=== PATIENT | male | born 1965 | race Two or more races ===

== ENCOUNTER 2017-05-25 16:10 | Emergency (ER) | payer OTHER ==
[~2017-05-25] VITALS: Ht 167.6 cm; Wt 105.2 kg
[~2017-05-25 16:10] MED LIST: AMOX500 PO; AZIT250 PO; Bactrim Ds Tab1 EACH PO; CEPH250A PO; Crutch1 EACH MISC; GUAI600T33 PO; METF500 PO; PRAV20 PO; Percocet 5-3251 EACH PO; Peri-Colace Ta1 EACH PO
[2017-05-25] MEDS ORDERED: STATIN DRUG (16:28)
[2017-05-25] MEDS ORDERED: METF500 PO (16:28)
== END 2017-05-25 16:51 | disposition home or self-care (01) ==
LOC: ER 16:10
DX: S61.012A Laceration without foreign body of left thumb without damage to nail, initial encounter (principal); E11.9 Type 2 diabetes mellitus without complications; W26.9XXA Contact with unspecified sharp object(s), initial encounter; Y99.0 Civilian activity done for income or pay
CPT/HCPCS: 12001; 99283

== ENCOUNTER 2018-02-21 01:52 | Emergency (ER) | payer OTHER ==
[~2018-02-21] VITALS: Ht 172.7 cm; Wt 104.3 kg
[~2018-02-21 01:52] MED LIST changes: +STATIN DRUG
[2018-02-21 02:21] LABS: BASOPHILS ABSOLUTE AUTO 0.06 K/mm3 (0.00-0.23); BASOPHILS PERCENT AUTO 1 % (0-2); EOSINOPHILS ABSOLUTE AUTO 0.33 K/mm3 (0.00-0.68); EOSINOPHILS PERCENT AUTO 5 % (0-6); Hematocrit 47.6 % (37.0-53.0); IMMATURE GRAN ABSOLUTE AUTO 0.03 K/mm3 (0.00-0.10); IMMATURE GRAN PERCENT AUTO 1 % (0-1); LYMPHOCYTES ABSOLUTE AUTO 2.42 K/mm3 (0.84-5.20); LYMPHOCYTES PERCENT AUTO 36 % (21-46); MONOCYTES ABSOLUTE AUTO 0.51 K/mm3 (0.16-1.47); MONOCYTES PERCENT AUTO 8 % (4-13); Mean Corpuscular HGB 31.3 pg (26.0-34.0); Mean Corpuscular HGB Conc 33.6 g/dL (31.5-36.5); Mean Corpuscular Volume 93 fL (80-100); Mean Platelet Volume 10.5 fL (9.1-12.4); NEUTROPHILS PERCENT AUTO 50 % (41-73); Platelet Count 347 K/mm3 (150-400); RDW Coefficient Variation 12.8 % (11.7-14.2); RDW Standard Deviation 43.4 fL (35.1-46.3); Red Blood Cell Count 5.12 M/mm3 (4.30-5.90); White Blood Cell Count 6.65 K/mm3 (4.00-11.30)
[2018-02-21 02:31] LABS: Alanine Aminotransfer (ALT/SGP 78 U/L (12-78); Albumin, Blood 3.8 g/dL (3.4-5.0); Albumin/Globulin Ratio 0.9 (0.8-1.8); Alk Phos 81 U/L (50-136); Anion Gap 9 mmol/L (6-16); Aspartate Aminotrans (AST/SGOT 33 U/L (12-37); Bilirubin, Total 0.6 mg/dL (0.1-1.0); Blood Urea Nitrogen 12 mg/dL (8-24); Bun/Creatinine Ratio 15.8 (12.0-20.0); CO2, Blood 25 mmol/L (21-32); Calcium, Blood 8.8 mg/dL (8.5-10.1); Chloride, Blood 107 mmol/L (98-108); Creatinine, Blood 0.76 mg/dL (0.60-1.20); Globulin, Blood 4.1 g/dL (2.2-4.0); Glomerular Filtration Rate >60 (60-); Glucose, Blood 125 mg/dL (70-99); Potassium, Blood 4.1 mmol/L (3.5-5.5); Sodium, Blood 141 mmol/L (136-145); Total Protein, Blood 7.9 g/dL (6.4-8.2); Troponin I <0.015 ng/mL (0.000-0.040)
== END 2018-02-21 03:20 | disposition home or self-care (01) ==
LOC: ER 01:52
PROVIDERS: Emergency Medicine
DX: R06.02 Shortness of breath (principal); E11.9 Type 2 diabetes mellitus without complications
CPT/HCPCS: 36415; 71046; 80053; 84484; 85025; 93005; 93010; 99284-25

== ENCOUNTER 2019-06-15 16:06 | Emergency (ER) | payer OTHER ==
[~2019-06-15] VITALS: Ht 167.6 cm; Wt 97.5 kg
[2019-06-15 16:33] LABS: BASOPHILS ABSOLUTE AUTO 0.05 K/mm3 (0.00-0.23); BASOPHILS PERCENT AUTO 1 % (0-2); EOSINOPHILS ABSOLUTE AUTO 0.29 K/mm3 (0.00-0.68); EOSINOPHILS PERCENT AUTO 5 % (0-6); Hematocrit 48.9 % (37.0-53.0); Hemoglobin 16.3 g/dL (13.5-17.5); IMMATURE GRAN ABSOLUTE AUTO 0.01 K/mm3 (0.00-0.10); IMMATURE GRAN PERCENT AUTO 0 % (0-1); LYMPHOCYTES ABSOLUTE AUTO 2.02 K/mm3 (0.84-5.20); LYMPHOCYTES PERCENT AUTO 34 % (21-46); MONOCYTES ABSOLUTE AUTO 0.48 K/mm3 (0.16-1.47); MONOCYTES PERCENT AUTO 8 % (4-13); Mean Corpuscular HGB 31.4 pg (26.0-34.0); Mean Corpuscular HGB Conc 33.3 g/dL (31.5-36.5); Mean Corpuscular Volume 94 fL (80-100); Mean Platelet Volume 10.5 fL (9.1-12.4); NEUTROPHILS ABSOLUTE AUTO 3.05 K/mm3 (1.96-9.15); NEUTROPHILS PERCENT AUTO 52 % (41-73); Platelet Count 282 K/mm3 (150-400); RDW Coefficient Variation 12.9 % (11.7-14.2); RDW Standard Deviation 44.3 fL (35.1-46.3); Red Blood Cell Count 5.19 M/mm3 (4.30-5.90)
[2019-06-15 16:57] LABS: Alanine Aminotransfer (ALT/SGP 74 U/L (12-78); Albumin, Blood 4.1 g/dL (3.4-5.0); Albumin/Globulin Ratio 1.1 (0.8-1.8); Alk Phos 77 U/L (50-136); Anion Gap 5 mmol/L (6-16); Aspartate Aminotrans (AST/SGOT 35 U/L (12-37); Bilirubin, Total 0.9 mg/dL (0.1-1.0); Blood Urea Nitrogen 17 mg/dL (8-24); Bun/Creatinine Ratio 23.1 (12.0-20.0); CO2, Blood 24 mmol/L (21-32); Chloride, Blood 109 mmol/L (98-108); Creatinine, Blood 0.74 mg/dL (0.60-1.20); Globulin, Blood 3.9 g/dL (2.2-4.0); Glomerular Filtration Rate >60 (60-); Glucose, Blood 119 mg/dL (70-99); Potassium, Blood 3.7 mmol/L (3.5-5.5); Sodium, Blood 138 mmol/L (136-145); Troponin I <0.015 ng/mL (0.000-0.040)
[2019-06-15] MEDS ORDERED: Zithromax250 MG PO (18:43)
== END 2019-06-15 20:50 | disposition home or self-care (01) ==
LOC: ER 16:06
PROVIDERS: Physician Assistant
DX: J18.9 Pneumonia, unspecified organism (principal); E11.9 Type 2 diabetes mellitus without complications; I25.2 Old myocardial infarction
CPT/HCPCS: 36415; 71046; 80053; 84484; 85025; 93005; 93010; 99284-25

== ENCOUNTER → 2019-09-11 | Outpatient (CLI) | payer OTHER ==
[~2019-09-11] MED LIST changes: +Zithromax250 MG PO
[2019-09-11 17:32] LABS: BASOPHILS ABSOLUTE AUTO 0.05 K/mm3 (0.00-0.23); BASOPHILS PERCENT AUTO 1 % (0-2); EOSINOPHILS ABSOLUTE AUTO 0.25 K/mm3 (0.00-0.68); EOSINOPHILS PERCENT AUTO 5 % (0-6); Hematocrit 49.1 % (37.0-53.0); Hemoglobin 16.5 g/dL (13.5-17.5); IMMATURE GRAN ABSOLUTE AUTO 0.01 K/mm3 (0.00-0.10); IMMATURE GRAN PERCENT AUTO 0 % (0-1); LYMPHOCYTES ABSOLUTE AUTO 2.25 K/mm3 (0.84-5.20); LYMPHOCYTES PERCENT AUTO 48 % (21-46); MONOCYTES ABSOLUTE AUTO 0.36 K/mm3 (0.16-1.47); MONOCYTES PERCENT AUTO 8 % (4-13); Mean Corpuscular HGB 31.5 pg (26.0-34.0); Mean Corpuscular HGB Conc 33.6 g/dL (31.5-36.5); Mean Corpuscular Volume 94 fL (80-100); Mean Platelet Volume 11.7 fL (9.1-12.4); NEUTROPHILS ABSOLUTE AUTO 1.74 K/mm3 (1.96-9.15); NEUTROPHILS PERCENT AUTO 37 % (41-73); Platelet Count 271 K/mm3 (150-400); RDW Standard Deviation 44.8 fL (35.1-46.3); Red Blood Cell Count 5.24 M/mm3 (4.30-5.90); White Blood Cell Count 4.66 K/mm3 (4.00-11.30)
[2019-09-11 17:33] LABS: Alanine Aminotransfer (ALT/SGP 41 U/L (12-78); Albumin/Globulin Ratio 1.1 (0.8-1.8); Alk Phos 81 U/L (50-136); Anion Gap 7 mmol/L (6-16); Aspartate Aminotrans (AST/SGOT 22 U/L (12-37); Bilirubin, Total 1.1 mg/dL (0.1-1.0); Blood Urea Nitrogen 16 mg/dL (8-24); Bun/Creatinine Ratio 22.4 (12.0-20.0); CHOL/HDL RATIO 5.3; CO2, Blood 23 mmol/L (21-32); Chloride, Blood 108 mmol/L (98-108); Cholesterol 266 mg/dL (50-200); Creatinine, Blood 0.71 mg/dL (0.60-1.20); Globulin, Blood 3.8 g/dL (2.2-4.0); Glomerular Filtration Rate >60 (60-); Glucose, Blood 138 mg/dL (70-99); HDL Cholesterol 50 mg/dL (>39); LDL/HDL RATIO 3.6; Low Density Lipoprotein Chol 181 mg/dL (0-110); Sodium, Blood 138 mmol/L (136-145); Total Protein, Blood 7.8 g/dL (6.4-8.2); Triglycerides 174 mg/dL (30-160); Very Low Density Lipoprot Chol 34 mg/dL (6-32)
== END | disposition home or self-care (01) ==
LOC: LAB SHORT 11:45 → LAB 11:45 → LAB FUT 08-13 11:10 → EDSTATUS 08-13 11:10
PROVIDERS: Nurse Practitioner
DX: E78.5 Hyperlipidemia, unspecified (principal); E55.9 Vitamin D deficiency, unspecified; I10 Essential (primary) hypertension
CPT/HCPCS: 80053; 80061; 82306; 85025

== ENCOUNTER → 2020-07-06 | Outpatient (CLI) | payer OTHER | END | disposition home or self-care (01) | LOC: LAB 16:51 → LAB SHORT 16:51 | DX: M25.569 Pain in unspecified knee (principal) | CPT/HCPCS: 84560 ==

== ENCOUNTER 2020-12-11 19:36 | Emergency (ER) | payer OTHER ==
[~2020-12-11] VITALS: Ht 165.1 cm; Wt 106.6 kg
[2020-12-11 22:06] LABS: BASOPHILS ABSOLUTE AUTO 0.01 K/mm3 (0.00-0.23); BASOPHILS PERCENT AUTO 0 % (0-2); EOSINOPHILS PERCENT AUTO 0 % (0-6); Hematocrit 41.5 % (37.0-53.0); Hemoglobin 14.1 g/dL (13.5-17.5); IMMATURE GRAN ABSOLUTE AUTO 0.02 K/mm3 (0.00-0.10); IMMATURE GRAN PERCENT AUTO 0 % (0-1); LYMPHOCYTES ABSOLUTE AUTO 0.85 K/mm3 (0.84-5.20); LYMPHOCYTES PERCENT AUTO 11 % (21-46); MONOCYTES ABSOLUTE AUTO 0.22 K/mm3 (0.16-1.47); MONOCYTES PERCENT AUTO 3 % (4-13); Mean Corpuscular HGB 31.1 pg (26.0-34.0); Mean Corpuscular Volume 91 fL (80-100); Mean Platelet Volume 10.6 fL (9.1-12.4); NEUTROPHILS ABSOLUTE AUTO 6.49 K/mm3 (1.96-9.15); NEUTROPHILS PERCENT AUTO 86 % (41-73); Platelet Count 197 K/mm3 (150-400); RDW Coefficient Variation 13.2 % (11.7-14.2); RDW Standard Deviation 44.5 fL (35.1-46.3); Red Blood Cell Count 4.54 M/mm3 (4.30-5.90); White Blood Cell Count 7.59 K/mm3 (4.00-11.30)
[2020-12-11 22:20] LABS: Alanine Aminotransfer (ALT/SGP 80 U/L (12-78); Albumin, Blood 2.8 g/dL (3.4-5.0); Albumin/Globulin Ratio 0.8 (0.8-1.8); Alk Phos 70 U/L (50-136); Anion Gap 6 mmol/L (6-16); Aspartate Aminotrans (AST/SGOT 59 U/L (12-37); Bilirubin, Total 0.7 mg/dL (0.1-1.0); Blood Urea Nitrogen 8 mg/dL (8-24); Bun/Creatinine Ratio 10.4 (12.0-20.0); CO2, Blood 23 mmol/L (21-32); Calcium, Blood 7.8 mg/dL (8.5-10.1); Chloride, Blood 108 mmol/L (98-108); Creatinine, Blood 0.77 mg/dL (0.60-1.20); Globulin, Blood 3.6 g/dL (2.2-4.0); Glomerular Filtration Rate >60 (60-); Glucose, Blood 208 mg/dL (70-99); Sodium, Blood 137 mmol/L (136-145); Total Protein, Blood 6.4 g/dL (6.4-8.2); Troponin I <0.015 ng/mL (0.000-0.040)
[2020-12-11] MEDS ORDERED: DECADRON6 M1 PO (22:57)
== END 2020-12-12 01:19 | disposition home or self-care (01) ==
LOC: ER 19:36
PROVIDERS: Emergency Medicine
DX: U07.1 COVID-19 (principal); R09.02 Hypoxemia; E11.9 Type 2 diabetes mellitus without complications; I10 Essential (primary) hypertension; Z79.84 Long term (current) use of oral hypoglycemic drugs
CPT/HCPCS: 80053; 83880; 84484; 85025; 93005; 93010; 96374; 99285-25; J1100; J7120

== ENCOUNTER 2020-12-14 03:46 | Inpatient (IN) | payer OTHER ==
[~2020-12-14] VITALS: Ht 167.6 cm; Wt 100.2 kg
[~2020-12-14 03:46] MED LIST changes: +DECADRON6 M1 PO
[2020-12-14 04:18] LABS: BASOPHILS ABSOLUTE AUTO 0.01 K/mm3 (0.00-0.23); BASOPHILS PERCENT AUTO 0 % (0-2); EOSINOPHILS PERCENT AUTO 0 % (0-6); Hematocrit 43.4 % (37.0-53.0); Hemoglobin 14.8 g/dL (13.5-17.5); Mean Corpuscular HGB 30.6 pg (26.0-34.0); Mean Corpuscular HGB Conc 34.1 g/dL (31.5-36.5); Mean Corpuscular Volume 90 fL (80-100); Mean Platelet Volume 10.3 fL (9.1-12.4); Platelet Count 279 K/mm3 (150-400); RDW Coefficient Variation 13.3 % (11.7-14.2); RDW Standard Deviation 43.6 fL (35.1-46.3); Red Blood Cell Count 4.83 M/mm3 (4.30-5.90); White Blood Cell Count 11.03 K/mm3 (4.00-11.30)
[2020-12-14 04:33] LABS: IMMATURE GRAN ABSOLUTE AUTO 0.07 K/mm3 (0.00-0.10); IMMATURE GRAN PERCENT AUTO 1 % (0-1); LYMPHOCYTES PERCENT AUTO 10 % (21-46); MONOCYTES ABSOLUTE AUTO 0.29 K/mm3 (0.16-1.47); MONOCYTES PERCENT AUTO 3 % (4-13); NEUTROPHILS ABSOLUTE AUTO 9.56 K/mm3 (1.96-9.15); NEUTROPHILS PERCENT AUTO 87 % (41-73)
[2020-12-14 04:37] LABS: Alanine Aminotransfer (ALT/SGP 78 U/L (12-78); Albumin, Blood 2.8 g/dL (3.4-5.0); Albumin/Globulin Ratio 0.6 (0.8-1.8); Alk Phos 83 U/L (50-136); Anion Gap 9 mmol/L (6-16); Aspartate Aminotrans (AST/SGOT 48 U/L (12-37); Bilirubin, Total 0.7 mg/dL (0.1-1.0); Blood Urea Nitrogen 21 mg/dL (8-24); Bun/Creatinine Ratio 28.9 (12.0-20.0); CO2, Blood 23 mmol/L (21-32); Calcium, Blood 8.7 mg/dL (8.5-10.1); Chloride, Blood 108 mmol/L (98-108); Creatinine, Blood 0.73 mg/dL (0.60-1.20); Ferritin, Serum 1165 ng/mL (26-388); Globulin, Blood 4.4 g/dL (2.2-4.0); Glomerular Filtration Rate >60 (60-); Glucose, Blood 237 mg/dL (70-99); Lactate Dehydrogenase (Ld),Bld 760 U/L (100-240); Potassium, Blood 3.8 mmol/L (3.5-5.5); Sodium, Blood 140 mmol/L (136-145); Total Protein, Blood 7.2 g/dL (6.4-8.2)
[2020-12-14] MEDS ORDERED: METFORMIN HCL500 M3 PO (14:41)
[2020-12-14] MEDS ORDERED: DEXA2 PO (14:42)
--- NOTE | 2020-12-14 18:40 | NUR ---
ADMISSION: REPORT RECEIVED FROM JOHN Hatfield RN IN ED. PT ARRIVED TO U-05 AT APPROX 1805. ON ARRIVAL, THE PT IS AWAKE, A&O TO ALL. COMMUNICATION IS SOMEWHAT DIFFICULT & LIMITED R/T PT BEING PRIMARILY [place]EN[place] SPEAKING. HE DOES UNDERSTAND SOME SIMPLE FINNISH & IS ABLE TO MAKE NEEDS KNOWN. LS CLEAR IN UPPERS, EXPIRATORY WHEEZING IN LOWERS, PT ON BIPAP W/ SETTINGS: 10/5, 100% FIO2 & BACKUP RATE 12. O2 SATS > 92% ON AVG. MONITOR SHOWS SR W/ HR 80s, BP STABLE. PT DOES NOT HAVE DIET ORDER R/T BIPAP DEPENDANCE BUT DOES TOLERATE SMALL BREAKS TO HAVE SIPS OF WATER AT HIS REQUEST. HE VOIDS USING URINAL AT BEDSIDE W/O DIFFICULTY. SKIN CONDITION OVERALL INTACT, PT ENCOURAGED TO REPOSITION SELF PRONE OR SIDE-LYING. WILL CONTINUE TO MONITOR & REPORT OFF TO ONCOMING RN.
[2020-12-15 04:27] LABS: Hematocrit 42.4 % (37.0-53.0); Hemoglobin 14.1 g/dL (13.5-17.5); Mean Corpuscular HGB 30.7 pg (26.0-34.0); Mean Corpuscular HGB Conc 33.3 g/dL (31.5-36.5); Mean Corpuscular Volume 92 fL (80-100); Mean Platelet Volume 10.9 fL (9.1-12.4); NRBC ABSOLUTE 0.02 K/mm3 (0.00-0.02); NRBC Auto 0.3 /100 WBC (0.0-0.2); Platelet Count 245 K/mm3 (150-400); RDW Coefficient Variation 13.6 % (11.7-14.2); RDW Standard Deviation 46.1 fL (35.1-46.3); White Blood Cell Count 7.97 K/mm3 (4.00-11.30)
[2020-12-15 04:44] LABS: Alanine Aminotransfer (ALT/SGP 63 U/L (12-78); Albumin, Blood 2.5 g/dL (3.4-5.0); Albumin/Globulin Ratio 0.6 (0.8-1.8); Alk Phos 85 U/L (50-136); Anion Gap 6 mmol/L (6-16); Aspartate Aminotrans (AST/SGOT 47 U/L (12-37); Bilirubin, Total 1.1 mg/dL (0.1-1.0); Blood Urea Nitrogen 26 mg/dL (8-24); Bun/Creatinine Ratio 37.2 (12.0-20.0); CO2, Blood 27 mmol/L (21-32); Calcium, Blood 8.5 mg/dL (8.5-10.1); Chloride, Blood 107 mmol/L (98-108); Globulin, Blood 4.2 g/dL (2.2-4.0); Glomerular Filtration Rate >60 (60-); Glucose, Blood 136 mg/dL (70-99); Sodium, Blood 140 mmol/L (136-145); Total Protein, Blood 6.7 g/dL (6.4-8.2)
[2020-12-15 05:20] LABS: BASOPHILS PERCENT MAN 0 % (0-2); EOSINOPHILS PERCENT MAN 0 % (0-6); LYMPHOCYTES % ATYPICAL MANUAL 1 % (0-0); LYMPHOCYTES ABSOLUTE MAN 0.79 K/mm3 (0.84-5.20); LYMPHOCYTES PERCENT MAN 9 % (21-46); MONOCYTES ABSOLUTE MAN 0.07 K/mm3 (0.16-1.47); MONOCYTES PERCENT MAN 1 % (4-13); SEG NEUTROPHILS PERCENT MAN 88 % (41-73)
[2020-12-15 05:22] LABS: MYELOCYTE ABSOLUTE MAN 0.07 K/mm3 (0.00-0.00); MYELOCYTE PERCENT MAN 1 % (0-0); TOTAL CELLS COUNTED 100
[2020-12-15 05:23] LABS: NEUTROPHILS ABSOLUTE MAN 7.01 K/mm3 (1.96-9.15)
--- NOTE | 2020-12-15 06:02 | NUR ---
SHIFT SUMMARY PT A&O X4 W/ LIMITED COMMUNICATION D/T PRIMARY LANGUAGE [place]. PT ABLE TO UNDERSTAND, COMMUNICATE, & FOLLOW SOME SIMPLE ARMENIAN INSTRUCTIONS. HAND STONER PHONE IN RM. PT VSS. MONITOR SHOWING SR-ST, HR 60's-110. SPO2 > 90% ON BIPAP: 10/5, FIO2 90% TRANSITIONED TO CPAP: 10, FIO2 70-80% THIS SHIFT. PT REPOSITIONING SELF IN BED W/ OUT DIFFICULTY. PT ENCOURAGED TO PRONE OR LAY ON SIDE. PT LAYING ON EITHER SIDE MAJORITY OF SHIFT. PT CONTINUES TO BE NPO, TOLERATING OCCASSIONAL SIPS OF WATER FOR PO INTAKE. WILL CONTINUE TO MONITOR & PROVIDE CARE UNTIL REPORT OFF TO DAY SHIFT RN.
--- NOTE | 2020-12-15 07:50 | NUR ---
ASSUMED CARE: REPORT RECEIVED FROM LAYO Karimi RN. ASSUMED CARE OF THIS PT AT APPROX 0700. ON ASSESSMENT, THE PT IS AWAKE, A&O. HE IS PRIMARILY UPPER [place]ORBIAN-SPEAKING BUT IS ABLE TO EXPRESS HIS NEEDS & VERBALIZED UNDERSTANDING. STATION MECHANIC APPRENTICE USED PRN. LS ARE DIM IN BASES, PT ON CPAP 10 W/ 80% FIO2. O2 SATS > 90% ON AVG, DESATS TO 86% W/ BREAKS FROM CPAP. MONITOR SHOWS ST W/ HR 100s, BP STABLE. NPO R/T CPAP DEPENDANCE AT THIS TIME, TOLERATES SMALL BREAKS FOR SIPS OF WATER. VOIDS W/O DIFFICULTY USING URINAL. SKIN CONDITION OVERALL CDI. REPOSITIONING PRONE & SIDE-LYING ENCOURAGED FOR THIS PT & HE IS COMPLIANT, REPOSITIONING SELF. WILL CONTINUE TO MONITOR & UPDATE NEEDED.
--- NOTE | 2020-12-15 19:32 | NUR ---
SHIFT SUMMARY: NO ACUTE CHANGES SINCE PRIOR UPDATES. PT REMAINS A&O, COOPERATIVE W/ CARE. PT ON CPAP 10, FIO2 75% W/ O2 SATS > 92% ON AVG, DESATS TO 86% W/ EXERTION OR COUGHING. MONITOR SHOWS SR-ST W/ HR 90-100s, BP STABLE. NPO R/T CPAP DEPENDANCE. VOIDS W/O DIFFICULTY USING URINAL. SKIN CONDITION OVERALL INTACT, PT HAS BEEN ABLE TO REPOSITION SELF PRONE & SIDE-LYING THIS SHIFT W/ NOTED IMPROVEMENT TO O2 SATS. WILL CONTINUE TO MONITOR & REPORT OFF TO ONCOMING RN.
[2020-12-16 04:02] LABS: BASOPHILS ABSOLUTE AUTO 0.01 K/mm3 (0.00-0.23); BASOPHILS PERCENT AUTO 0 % (0-2); EOSINOPHILS ABSOLUTE AUTO 0.02 K/mm3 (0.00-0.68); EOSINOPHILS PERCENT AUTO 0 % (0-6); Hematocrit 42.3 % (37.0-53.0); Hemoglobin 14.2 g/dL (13.5-17.5); Mean Corpuscular HGB 30.6 pg (26.0-34.0); Mean Corpuscular HGB Conc 33.6 g/dL (31.5-36.5); Mean Corpuscular Volume 91 fL (80-100); Mean Platelet Volume 10.9 fL (9.1-12.4); Platelet Count 213 K/mm3 (150-400); RDW Coefficient Variation 13.2 % (11.7-14.2); RDW Standard Deviation 44.7 fL (35.1-46.3); Red Blood Cell Count 4.64 M/mm3 (4.30-5.90); White Blood Cell Count 5.83 K/mm3 (4.00-11.30)
[2020-12-16 04:18] LABS: Albumin, Blood 2.3 g/dL (3.4-5.0); Anion Gap 7 mmol/L (6-16); Blood Urea Nitrogen 27 mg/dL (8-24); Bun/Creatinine Ratio 44.4 (12.0-20.0); CO2, Blood 27 mmol/L (21-32); Calcium, Blood 8.5 mg/dL (8.5-10.1); Chloride, Blood 106 mmol/L (98-108); Creatinine, Blood 0.61 mg/dL (0.60-1.20); Glomerular Filtration Rate >60 (60-); Glucose, Blood 121 mg/dL (70-99); Phosphorus, Blood 3.5 mg/dL (2.5-4.9); Potassium, Blood 4.1 mmol/L (3.5-5.5); Sodium, Blood 140 mmol/L (136-145)
[2020-12-16 04:30] LABS: IMMATURE GRAN ABSOLUTE AUTO 0.09 K/mm3 (0.00-0.10); IMMATURE GRAN PERCENT AUTO 2 % (0-1); LYMPHOCYTES ABSOLUTE AUTO 0.56 K/mm3 (0.84-5.20); LYMPHOCYTES PERCENT AUTO 10 % (21-46); MONOCYTES ABSOLUTE AUTO 0.12 K/mm3 (0.16-1.47); MONOCYTES PERCENT AUTO 2 % (4-13); NEUTROPHILS ABSOLUTE AUTO 5.03 K/mm3 (1.96-9.15); NEUTROPHILS PERCENT AUTO 86 % (41-73)
--- NOTE | 2020-12-16 05:14 | NUR ---
SHIFT SUMMARY NO ACUTE CHANGES THIS SHIFT. VSS. ON CPAP 10L 75%, SPO2 92% SUPINE / 96% PRONED. PT IN SR. USING URINAL. COMMUNICATES WELL DESPITE BEING PREDOMINANTLY [place]ALL[place]IAN SPEAKING. PT HAS TOLERATED MASK BEING PULLED UP TO TAKE SIPS OF WATER. HAS SLEPT T/O MAJORITY OF NIGHT. USING CALL LIGHT APPROPRIATELY. REMAINS IN ISOLALATION.
--- NOTE | 2020-12-16 18:10 | NUR ---
SHIFT SUMMARY; ASSUMED CARE AT 0700, REPORT FROM DELMIS. Niraj/Niraj/KIMMIE DURING SHIFT. CPAP 80% FOR SHIFT. DESATURATION INTO MID 70'S WHEN OFF OF CPAP FOR SIPS OF WATER. RECOVERS TO LOW 90'S WITHIN 5 MINS. REPOSITIONS SELF IN BED NEEDED. BED BATH TODAY AND LINEN CHANGE. NPO DUE TO RESPIRATORY STATUS. WILL CONTINUE TO MONITOR AND TREAT UNTIL CHANGE OF SHIFT.
[2020-12-17 03:52] LABS: BASOPHILS ABSOLUTE AUTO 0.02 K/mm3 (0.00-0.23); BASOPHILS PERCENT AUTO 0 % (0-2); EOSINOPHILS ABSOLUTE AUTO 0.01 K/mm3 (0.00-0.68); EOSINOPHILS PERCENT AUTO 0 % (0-6); Hematocrit 42.5 % (37.0-53.0); Hemoglobin 14.2 g/dL (13.5-17.5); IMMATURE GRAN PERCENT AUTO 3 % (0-1); LYMPHOCYTES ABSOLUTE AUTO 0.46 K/mm3 (0.84-5.20); LYMPHOCYTES PERCENT AUTO 7 % (21-46); MONOCYTES ABSOLUTE AUTO 0.12 K/mm3 (0.16-1.47); MONOCYTES PERCENT AUTO 2 % (4-13); Mean Corpuscular HGB 30.7 pg (26.0-34.0); Mean Corpuscular HGB Conc 33.4 g/dL (31.5-36.5); Mean Corpuscular Volume 92 fL (80-100); Mean Platelet Volume 10.9 fL (9.1-12.4); NEUTROPHILS ABSOLUTE AUTO 6.16 K/mm3 (1.96-9.15); NEUTROPHILS PERCENT AUTO 88 % (41-73); Platelet Count 223 K/mm3 (150-400); RDW Coefficient Variation 13.1 % (11.7-14.2); RDW Standard Deviation 44.2 fL (35.1-46.3); Red Blood Cell Count 4.63 M/mm3 (4.30-5.90); White Blood Cell Count 6.97 K/mm3 (4.00-11.30)
[2020-12-17 04:08] LABS: Albumin, Blood 2.2 g/dL (3.4-5.0); Anion Gap 7 mmol/L (6-16); Blood Urea Nitrogen 30 mg/dL (8-24); Bun/Creatinine Ratio 50.3 (12.0-20.0); CO2, Blood 26 mmol/L (21-32); Calcium, Blood 8.4 mg/dL (8.5-10.1); Chloride, Blood 107 mmol/L (98-108); Glomerular Filtration Rate >60 (60-); Glucose, Blood 176 mg/dL (70-99); Phosphorus, Blood 4.4 mg/dL (2.5-4.9); Potassium, Blood 4.3 mmol/L (3.5-5.5); Sodium, Blood 140 mmol/L (136-145)
--- NOTE | 2020-12-17 05:14 | NUR ---
SHIFT SUMMARY PT APPEARED WITHDRAWN AND DOWN WHEN FIRST ENCOUNTERED, DURING A FAMILY MEMBER VISIT IT WAS DETERMINED THAT THE PT WAS UNCLEAR ON THEIR PROGNOSIS, CURRENT SITUATION, AND PROGRESS. ONCE ALL OF THIS WAS EXPLAINED CLEARLY, THEIR MOOD LIFTED AND THEY BECAME EVEN MORE COOPERATIVE AND WILLING TO PRONE. THE PT HAS SLEPT THROUGHOUT THE NIGHT, SPO2 HAS BEEN >90% AND RT HAS SUCCESFULLY TITRATED DOWN TO 65%FiO2, CURRENT SPO2 IS 94%. NO OTHER ACUTE CHANGES NOTED.
--- NOTE | 2020-12-17 18:18 | NUR ---
ESHIFT SUMMARY; ASSUMED CARE AT 0700, RN CPAP 80%. A/A/OX4. ASSESMENT WITH INTERRPERTER PHONE. UP TO RECLINER WITH ASSISTANCE. SAT IN RECLINER ENTIRE SHIFT. SMALL BREAKS FROM CPAP FOR SIPS OF WATER. ATTEMPTED SMALL BITES OF FOOD PER DR. SCHWARZ. UNABLE TO TOLERATE DUE TO DESATURATION. RECOVERED WITHIN A FEW MINUTES AFTER PLACED BACK ON CPAP. LINEN CHANGE AND BED BATH TODAY. NO ACUTE CHANGES, WILL CONTINUE TO MONITOR UNTIL CHANGE OF SHIFT.
[2020-12-18 04:46] LABS: BASOPHILS ABSOLUTE AUTO 0.02 K/mm3 (0.00-0.23); BASOPHILS PERCENT AUTO 0 % (0-2); EOSINOPHILS ABSOLUTE AUTO 0.01 K/mm3 (0.00-0.68); EOSINOPHILS PERCENT AUTO 0 % (0-6); Hemoglobin 14.8 g/dL (13.5-17.5); IMMATURE GRAN ABSOLUTE AUTO 0.14 K/mm3 (0.00-0.10); IMMATURE GRAN PERCENT AUTO 2 % (0-1); LYMPHOCYTES ABSOLUTE AUTO 0.39 K/mm3 (0.84-5.20); LYMPHOCYTES PERCENT AUTO 5 % (21-46); MONOCYTES ABSOLUTE AUTO 0.13 K/mm3 (0.16-1.47); MONOCYTES PERCENT AUTO 2 % (4-13); Mean Corpuscular HGB 30.7 pg (26.0-34.0); Mean Corpuscular HGB Conc 33.6 g/dL (31.5-36.5); Mean Corpuscular Volume 91 fL (80-100); Mean Platelet Volume 11.5 fL (9.1-12.4); NEUTROPHILS ABSOLUTE AUTO 7.07 K/mm3 (1.96-9.15); NEUTROPHILS PERCENT AUTO 91 % (41-73); Platelet Count 239 K/mm3 (150-400); RDW Coefficient Variation 13.1 % (11.7-14.2); Red Blood Cell Count 4.82 M/mm3 (4.30-5.90); White Blood Cell Count 7.76 K/mm3 (4.00-11.30)
[2020-12-18 05:01] LABS: Albumin, Blood 2.2 g/dL (3.4-5.0); Anion Gap 5 mmol/L (6-16); Blood Urea Nitrogen 31 mg/dL (8-24); Bun/Creatinine Ratio 51.8 (12.0-20.0); CO2, Blood 26 mmol/L (21-32); Calcium, Blood 8.6 mg/dL (8.5-10.1); Chloride, Blood 108 mmol/L (98-108); Glomerular Filtration Rate >60 (60-); Glucose, Blood 144 mg/dL (70-99); Potassium, Blood 4.6 mmol/L (3.5-5.5); Sodium, Blood 139 mmol/L (136-145)
--- NOTE | 2020-12-18 05:10 | NUR ---
SHIFT SUMMARY PT BEGAN THE SHIFT IN RECLINER CHAIR, REQUESTED TO TRANSFER TO BED AT APPROX 2000. WITH HYPEROXYGENATION, PT DID NOT DESAT WITH THE ACTIVITY OF TRANSFER. ATTEMPTED TO SWITCH TO HIGH FLOW NC IN ORDER TO EAT PER PT REQUEST AND DID NOT TOLERATE WELL, SPO2 FELL TO 70% WITHIN 2 MINUTES AND RECOVERED TO >90% WITHIN 5 MINUTES ONCE CPAP WAS BACK IN PLACE. PT REPOSITIONED SELF IN BED AND SLEPT IN THE PRONE POSITION FOR THE MAJORITY OF THE NIGHT. SPO2 REMAINED >90% WHILE PRONE. VSS. NO OTHER ACUTE CHANGES NOTED.
--- NOTE | 2020-12-18 17:58 | NUR ---
SHIFT ASSESMENT. ASSUMED CARE AT 0700, REPORT FROM CANDIE BENITES. A/A/OX4 DURING SHIFT.CPAP IN PLACE AT 70%. UNABLE TO COME OFF CPAP FOR MEALS DUE TO DESATURATION. DISCUSSED WITH PROVIDER. CLINIMIX STARTED. UP TO CHAIR AT BEDSIDE FOR MOST OF MORNING, THEN TO BED LAYING IN PRONE POSITION. INSULIN COVERAGE NEEDED. VSS, WILL CONTINUE TO MONITOR AND TREAT UNTIL CHANGE OF SHIFT.
[2020-12-19 04:44] LABS: BASOPHILS ABSOLUTE AUTO 0.02 K/mm3 (0.00-0.23); BASOPHILS PERCENT AUTO 0 % (0-2); EOSINOPHILS ABSOLUTE AUTO 0.06 K/mm3 (0.00-0.68); EOSINOPHILS PERCENT AUTO 1 % (0-6); Hematocrit 42.9 % (37.0-53.0); Hemoglobin 14.3 g/dL (13.5-17.5); IMMATURE GRAN ABSOLUTE AUTO 0.14 K/mm3 (0.00-0.10); IMMATURE GRAN PERCENT AUTO 2 % (0-1); LYMPHOCYTES ABSOLUTE AUTO 0.41 K/mm3 (0.84-5.20); LYMPHOCYTES PERCENT AUTO 6 % (21-46); MONOCYTES ABSOLUTE AUTO 0.11 K/mm3 (0.16-1.47); MONOCYTES PERCENT AUTO 2 % (4-13); Mean Corpuscular HGB 30.3 pg (26.0-34.0); Mean Corpuscular HGB Conc 33.3 g/dL (31.5-36.5); Mean Corpuscular Volume 91 fL (80-100); Mean Platelet Volume 11.3 fL (9.1-12.4); NEUTROPHILS ABSOLUTE AUTO 5.99 K/mm3 (1.96-9.15); NEUTROPHILS PERCENT AUTO 89 % (41-73); Platelet Count 246 K/mm3 (150-400); RDW Coefficient Variation 12.9 % (11.7-14.2); RDW Standard Deviation 42.8 fL (35.1-46.3); Red Blood Cell Count 4.72 M/mm3 (4.30-5.90); White Blood Cell Count 6.73 K/mm3 (4.00-11.30)
[2020-12-19 05:10] LABS: Albumin, Blood 2.1 g/dL (3.4-5.0); Anion Gap 6 mmol/L (6-16); Blood Urea Nitrogen 28 mg/dL (8-24); Bun/Creatinine Ratio 48.3 (12.0-20.0); CO2, Blood 27 mmol/L (21-32); Calcium, Blood 8.1 mg/dL (8.5-10.1); Chloride, Blood 103 mmol/L (98-108); Creatinine, Blood 0.58 mg/dL (0.60-1.20); Glomerular Filtration Rate >60 (60-); Glucose, Blood 157 mg/dL (70-99); Phosphorus, Blood 3.7 mg/dL (2.5-4.9); Potassium, Blood 4.4 mmol/L (3.5-5.5); Sodium, Blood 136 mmol/L (136-145)
--- NOTE | 2020-12-19 05:53 | NUR ---
SHIFT SUMMARY PT. A/OX4 ALERT, CALM, AND COMPLIANT WITH MEDICAL TREATMENT. ON CPAP AT 70% DOES DESAT QUICK WHEN OFF CPAP FOR SHORT AMOUNTS OF TIME WHILE HAVING ANY PO INTAKE. DOES RECOVER W/IN 1-2 MINUTES MAINTAINING 02 ABOVE 90%. PT. REPOSITIONS SELF IN BED AND SLEPT IN PRONE POSITION THROUGHOUT THE NIGHT. DID HAVE AN OCCASIONAL COUGH; WAS ABLE TO COUGH UP CLEAR SPUTUM. WILL CONTINUE TO TREAT AND MONITOR PT. UNTIL SHIFT CHANGE. NO OTHER ACUTE CHANGES NOTED. PT. COMFORTABLE AND STABLE AT BEDSIDE.
--- NOTE | 2020-12-19 18:28 | NUR ---
PT HAS BEEN STABLE THIS SHIFT. PT REMAINS ON BIPAP WITH 70% FiO2. OCCASIONAL HARSH COUGH. LS COARSE. PT TOLERATES PRONE POSITIONING WELL. PT UP TO CHAIR THIS EVENING WITH STANDBY ASSIT. TELE SR. PT USING URINAL. BATH THIS EVENING. PT SWATI DIET BUT TAKES FREQUENT BREAKS TO PUT BIPAP BACK ON. DESATS WITH ANY ACTIVITY. BLOOD SUGARS HAVE BEEN STABLE < 300. CLINIMIX CONTINUES TO INFUSE. PT USES DYNAMO REPAIRER PHONE WELL AND CALLS APPROPRIATELY NEEDED.
[2020-12-20 03:59] LABS: Hematocrit 43.1 % (37.0-53.0); Hemoglobin 14.3 g/dL (13.5-17.5); Mean Corpuscular HGB 30.2 pg (26.0-34.0); Mean Corpuscular HGB Conc 33.2 g/dL (31.5-36.5); Mean Corpuscular Volume 91 fL (80-100); Mean Platelet Volume 11.1 fL (9.1-12.4); Platelet Count 250 K/mm3 (150-400); RDW Coefficient Variation 12.7 % (11.7-14.2); RDW Standard Deviation 42.5 fL (35.1-46.3); Red Blood Cell Count 4.73 M/mm3 (4.30-5.90); White Blood Cell Count 7.46 K/mm3 (4.00-11.30)
[2020-12-20 04:13] LABS: Albumin, Blood 2.1 g/dL (3.4-5.0); Anion Gap 3 mmol/L (6-16); Blood Urea Nitrogen 25 mg/dL (8-24); Bun/Creatinine Ratio 40.1 (12.0-20.0); CO2, Blood 30 mmol/L (21-32); Chloride, Blood 101 mmol/L (98-108); Creatinine, Blood 0.62 mg/dL (0.60-1.20); Glomerular Filtration Rate >60 (60-); Glucose, Blood 149 mg/dL (70-99); Phosphorus, Blood 3.6 mg/dL (2.5-4.9); Potassium, Blood 4.5 mmol/L (3.5-5.5); Sodium, Blood 134 mmol/L (136-145)
[2020-12-20 05:56] LABS: BAND PERCENT MAN 7 % (0-8); BASOPHILS PERCENT MAN 0 % (0-2); EOSINOPHILS ABSOLUTE MAN 0.14 K/mm3 (0.00-0.68); EOSINOPHILS PERCENT MAN 2 % (0-6); LYMPHOCYTES ABSOLUTE MAN 0.29 K/mm3 (0.84-5.20); LYMPHOCYTES PERCENT MAN 4 % (21-46); MONOCYTES ABSOLUTE MAN 0.07 K/mm3 (0.16-1.47); MONOCYTES PERCENT MAN 1 % (4-13); MYELOCYTE ABSOLUTE MAN 0.07 K/mm3 (0.00-0.00); MYELOCYTE PERCENT MAN 1 % (0-0); NEUTROPHILS ABSOLUTE MAN 6.86 K/mm3 (1.96-9.15); SEG NEUTROPHILS PERCENT MAN 85 % (41-73); TOTAL CELLS COUNTED 100
--- NOTE | 2020-12-20 06:40 | NUR ---
SHIFT SUMMARY PT. A/OX4, CALM AT BEDSIDE. CALLS APPROPRIATELY. ON CPAP AT 65% MAINTAING OXYGEN AVOBE 92%. DOES CONT. TO DESAT WHEN TAKING ANY TYPE OF ORAL INTAKE AND OF CPAP MACHINE. ONCE ON CPAP MACHINE DOES RECOVER WITHIN 1-2 MINUTES. COMPLIENT WITH MEDICAL CARE AND PRONING. CLINIMIX RUNNING AT 50 ML/HR. DID NOTE UPON STARTING SHIFT R. ARM SWOLLEN. PT. STATED DAY SHIFT NURSE CHANGED THE I.V. SITE. PT. DOES NOT HAVE ANY PAIN. DOES HAVE AN OCCASIONAL COUGH. STABLE AT BEDSIDE, WILL CONTINUE TO MONITOR PT. UNTIL SHIFT CHANGE. NO ACUTE CHANGES. PT. STABLE AT BEDSIDE.
--- NOTE | 2020-12-20 12:30 | NUR ---
INTUBATION DR. FARRAR AT BEDSIDE TO INTUBATE. 1214-2MG VERSED GIVEN PER DR. FARRAR FOLLOWED BY AN ADDITIONAL 2MG VERSEDAT 1217. 1218- 40MG ETOMIDATE GIVENT THEN 80MG ROCURONIUM. PROPOFOL INFUSION STARTED AT 30MCG/KG/MIN. ETT PLACED AT 1220 DIFFICULT PLACEMENT. POSITIVE COLOR CHANGE WITH VENT SETTINGS OF AC 24,380,PEEP 15, 100% FIO2. DIFFICULTY AUSCULTATING BREATHE SOUNDS, DECREASING SPO2. 1225- ETT REMOVED BY DR. FARRAR SPO2 30%. 1228 ETT REPLACED, 8.0 ETT, 25 CIELO. VENT SETTINGS SET AT AC 24,380,20 PEEP, 100% SPO2 IMPROVING. OG TUBE PLACED VERIFIED VIA AUSCULTATION. 1242 VITALS BP 136/96, HR 142, SPO2 91%. CENTRAL LINE PLACED TO RIGHT FEMORAL. NIMBEX GTT TO BE STARTED AT 2MCG, PROPOFOL INFUSING AT 40MCG/KG. CHEST XRAY ORDERED FOR TUBE PLACEMENT VERIFICATION.
--- NOTE | 2020-12-20 13:04 | NUR ---
RESIRATORY DISTRESS: LATE ENTRY: 11:45 NOTIFIED THAT THE PATIENT WAS EXPERIENCING RESPIRATORY DISTRESS. PATIENT SITTING UP IN BED WITH CPAP ON. SETTINGS INCREASED TO FIO2 AT 100%. PATIENT DIAPHORETIC WITH RR BETWEEN 32-40. PATIENT UTILIZING ACCESSORY MUSCLES TO BREATH. RT AT THE BEDSIDE. CUTTER WOODWIND REEDS PHONE USED TO EXPLAIN TO PATIENT THAT THE SETTINGS NEEDED TO BE CHANGED AND TO PROVIDE INSTRUCTIONS TO DECREASE BREATHING. PATIENT UNDERSTOOD AND FOLLOWED ABLE. MEDICATED TO ASSIST WTITH ANXIETY. HOSPITALIST IN THE ROOM WITH PULMONOLOGY. DECISION MADE TO INTUBATE THE PATIENT. EXPLAINED TO THE PATIENT IN [place] AND CONSENT GIVEN BY THE PATIENT. AFTER INTUBATION COMPLETED, CARE OF PATIENT TRANSFERRED TO PARVEEN SHEHEAN RN.
--- NOTE | 2020-12-20 13:30 | NUR ---
ASSUMED CARE: RECIEVED REPORT FROM ATUL SCHREIBER. PT WAS INTUBATED WITH ETT OF 8.0, 24 AT THE TEETH. VENT SETTINGS 24/380/100/10. DR FARRAR AT BEDSIDE PLACING CENTRAL LINE. PT'S O2 SAT AT 85 AT THIS TIME. PROPOFOL AT 40MCG, NIMBEX AT 2MCG. NS BOLUS RUNNING.
[2020-12-20 15:01] LABS: Source, Urine Catheter
[2020-12-20 15:05] LABS: Appearance, Urine Clear (Clear); Bilirubin, Urine Neg (Neg); Blood, Urine 4+ (Neg); Color, Urine Yellow (P-Yellow); Glucose Qualitative, Urine 4+ (Neg); Ketones, Urine 1+ (Neg); Leukocyte Esterase, Urine Neg (Neg); Nitrite, Urine Neg (Neg); Protein, Urine 3+ (Neg); Urobilinogen, Urine NORM (Normal)
[2020-12-20 15:20] LABS: Bacteria Few /hpf; Squamous Epithelial Cells Few /hpf (Few); White Blood Cells, Urine 0-2 /hpf (0-5)
[2020-12-20 15:21] LABS: Amorphous Mod (0-Heavy); Hyaline Casts 0-2 /lpf (0-2)
--- NOTE | 2020-12-20 17:40 | NUR ---
PT'S SATURATIONS NEVER GOT ABOVE 86 AND HR WAS IN 140S. SPOKE WITH DR FARRAR WHO ORDERED 1 FLUID BOLUS OF LR AND RN STARTED PRECEDEX AT 0.3. DISCUSSED STATUS WITH DR FARRAR AND PT SEEMED RESPONSIVE TO LR WITH HR AT 126. INSTRUCTED 1 MORE LITER LR AND TO INCREASE PRECEDEX TO 1.0. PT WAS PRONED WELL WITH RT ASSISTANCE TO ATTEMPT BETTER OXYGENATION. AT 1730 RN WAS CALLED TO ROOM DUE TO PT'S SATS DROPPING TO 79%. PEEP DECREASED TO 10 SINCE BP WAS DROPPING INTO 90S SYSTOLIC[address] DR FARRAR ORDERED STAT CXR TO LOOK FOR PNEUMO. ORDERED LEVOPHED GTT THAT WAS STARTED AT 5 TO ASSIST WITH BP. PEEP INCREASED TO 18 WITH SAT OF 74%, SWELLING TO COLLAR BONES WITH CREPITUS NOTED. STATES XRAY HAS NOT WORSENED. PT CURRENTLY ON PROPOFOL AT 40MCG, PRECEDEX AT 0.7MCG, FENTANYL GTT AT 100MCG/HR. HR AND BP IMPROVED WITH LEVOPHED BUT O2 SAT REMAINS AT 73% AT THIS TIME WITH VENT SETTINGS 24/380/18/100%
--- NOTE | 2020-12-20 18:46 | NUR ---
SPOKE WITH DR FARRAR REGARDING PT'S CONTINUED DESATURATION AND TEMPERATURE DECREASING. DR INSTRUCTED TO CALL FAMILY. SPOKE WITH PT'S DAUGHTER JOHNNIE AND TOLD HER THAT THE FAMILY NEEDS TO COME BECAUSE THE PT IS DYING AND THERE IS NOTHING ELSE WE CAN DO BECAUSE EVERYTHING WE ARE ALREADY DOING ISN'T HELPING. SCREENER AND CHICKEN AND FISH BUTCHER AWARE OF FAMILY COMING.
--- NOTE | 2020-12-20 19:45 | NUR ---
ASSUMED CARE OF PATIENT AT 1900, REPORT RECEIVED FROM PARVEEN SCHREIBER. PT INTUBATED AND PARALYZED/SEDATED. VENT SETTINGS AC 24/380/18/100% WITH SPO2 60-70'S. LUNGS CLEAR WITH DIMINISHED BASES. PT CURRENTLY IN PRONE POSITION. INFUSING RUNNING: NIMBEX @ 2 MCG/KG, FENTANYL @ 100 MCG/HR, PROPOFOL @ 40 MCG/KG, LEVOPHED @ 5 MCG/KG, AND PRECEDEX @ 0.7 MCG/KG. PER DAYSHIFT REPORT, FAMILY HAS BEEN NOTIFIED OF PT'S CONDITION AND WILL BE ARRIVING ANYTIME. TEMP JIANG IN PLACE DRAINING CLEAR YELLOW URINE TO GRAVITY.
--- NOTE | 2020-12-20 22:30 | NUR ---
2200: PT HR RAPIDLY DECLINING FROM 100'S TO 50-60'S. SPO2 READING 20-30'S. MULTIPLE FAMILY MEMBERS AT BEDSIDE. 2210: PT ASYSTOLE ON MONITOR. NO PULSE PALPATED, NO HEART SOUNDS HEARD. 221: RT AT BEDSIDE TO HELP UNPRONE PT AND TO REMOVE VENT. FAMILY REMAINS AT BEDSIDE. BELONGINGS INVENTORIED AND TO BE TAKEN HOME WITH FAMILY.
== END 2020-12-21 02:12 | DRG 208 ==
LOC: ER 03:46 → ERHOLD 06:03 → PCU 16:21
PROVIDERS: Emergency Medicine; Family Medicine; Internal Medicine Critical Care Medicine; ADMIT Internal Medicine
PROC: 5A09557 Assistance with Respiratory Ventilation, Greater than 96 Consecutive Hours, Continuous Positive Airway Pressure (ICD-10-PCS; principal; 2020-12-14)
PROC: 8E0ZXY6 Isolation (ICD-10-PCS; 2020-12-14)
PROC: 3E0333Z Introduction of Anti-inflammatory into Peripheral Vein, Percutaneous Approach (ICD-10-PCS; 2020-12-14)
PROC: XW033E5 Introduction of Remdesivir Anti-infective into Peripheral Vein, Percutaneous Approach, New Technology Group 5 (ICD-10-PCS; 2020-12-14)
PROC: 3E03329 Introduction of Other Anti-infective into Peripheral Vein, Percutaneous Approach (ICD-10-PCS; 2020-12-15)
PROC: 5A1935Z Respiratory Ventilation, Less than 24 Consecutive Hours (ICD-10-PCS; 2020-12-20)
PROC: 06HY33Z Insertion of Infusion Device into Lower Vein, Percutaneous Approach (ICD-10-PCS; 2020-12-20)
PROC: 0BH18EZ Insertion of Endotracheal Airway into Trachea, Via Natural or Artificial Opening Endoscopic (ICD-10-PCS; 2020-12-20)
PROC: 3E043XZ Introduction of Vasopressor into Central Vein, Percutaneous Approach (ICD-10-PCS; 2020-12-20)
DX: U07.1 COVID-19 (principal); J96.01 Acute respiratory failure with hypoxia; J12.82 Pneumonia due to coronavirus disease 2019; J93.9 Pneumothorax, unspecified; J98.2 Interstitial emphysema; E66.01 Morbid (severe) obesity due to excess calories; I10 Essential (primary) hypertension; E78.5 Hyperlipidemia, unspecified; Z98.890 Other specified postprocedural states; Z79.84 Long term (current) use of oral hypoglycemic drugs; Z68.32 Body mass index [BMI] 32.0-32.9, adult; E11.65 Type 2 diabetes mellitus with hyperglycemia; E88.09 Other disorders of plasma-protein metabolism, not elsewhere classified
CPT/HCPCS: 31500; 31720; 36415; 71045; 71260; 80053; 80069; 81001; 82728; 82947; 83615; 84145; 85025; 85379; 93005; 93010; 94002; 94660; 94762; 96374; 99285-25; A9270; J0456; J0696; J1100; J1650; J1815; J2060; J2250; J2704; J3010; J7030; J7050; J7060; J7120; Q9967